=== PATIENT | female | born 2000 | race Caucasian/White ===

== ENCOUNTER 2023-08-26 17:19 | Emergency (ER) | payer MEDICAID ==
[2023-08-26] MEDS: Lidocaine 1% with EPINEPHrine 1:100,000 20 ML MDV INJECT ONE (17:41)
[2023-08-26] MEDS: Bacitracin Oint 1 GM U/D Packet TOP ONE (17:41)
== END 2023-08-26 18:25 | disposition home or self-care (01) ==
LOC: JP.ED 17:19
DX: S81.811A Laceration without foreign body, right lower leg, initial encounter (principal); Z79.899 Other long term (current) drug therapy; W26.9XXA Contact with unspecified sharp object(s), initial encounter
CPT/HCPCS: 12004; 99282; 99283